=== PATIENT | female | born 1980 | race Caucasian/White ===

== ENCOUNTER → 2020-01-26 14:15 | Outpatient (CLI) | payer OTHER, SELFPAY ==
--- NOTE | ~2020-01-26 | US_ITS ---
US breast LT limited 01/26/2020 14:30 Indication: Follow-up left breast mass Procedure: High-resolution ultrasound of the left breast Comparison: 05/12/2019 Findings: At 5:00, 4 cm from the nipple, there is a complicated cyst measuring 8 mm maximum dimension . No suspicious masses are identified to suggest malignancy. Impression: 1: No sonographic evidence for malignancy in the left breast. Benign complicated cyst at 5:00, 4 cm f rom the nipple. Routine yearly screening mammogram and regular clinical breast examination are recommended. BI-RADS CATEGORY 2 - BENIGN FINDINGS Reviewed, dictated and finalized at location A. Impression: 1: No sonographic evidence for malignancy in the left breast. Benign complicate d cyst at 5:00, 4 cm from the nipple. Routine yearly screening mammogram and regular clinical breast examination are recommended. BI-RADS CATEGORY 2 - BENIGN FINDINGS
== END ==
PROVIDERS: Visit Provider Obstetrics & Gynecology
DX: R92.8 Other abnormal and inconclusive findings on diagnostic imaging of breast (principal)
CPT/HCPCS: 76642

== ENCOUNTER → 2020-12-02 14:32 | Outpatient (CLI) | payer BC, SELFPAY ==
--- NOTE | ~2020-12-02 | MM_ITS ---
EXAMINATION: MM screening [facility] BI w almita HISTORY: Screening mammogram TECHNIQUE: Craniocaudal and mediolateral oblique 3-D tomosynthesis images were obtained and synthetic 2-D images were generated. CAD analysis was submitted and interpreted. COMPARISON: 01/2020 limited left breast ultrasound 05/12/2019 diagnostic left mammogram and left complete ultrasound 04/2019 bilateral digital screening mammogram BREAST PARENCHYMAL COMPOSITION: The breasts are extremely dense, which lowers the sensitivity of mamm ography. FINDINGS: Scattered bilateral benign calcifications. Circumscribed 2.9 x 5 mm opacity in the outer mid right breast most consistent with benign lymph node . There is no evidence of suspicious mass, calcification, or architectural distortion to suggest malign tahmina in either breast. There has been no suspicious interval change. IMPRESSION: 1. No mammographic evidence of malignancy. 2. Recommend routine screening mammography in one year. BI-RADS Category 2: Benign finding(s). Reviewed, dictated and finalized at location A.
== END ==
PROVIDERS: PCP Internal Medicine; Visit Provider Obstetrics & Gynecology
DX: Z12.31 Encounter for screening mammogram for malignant neoplasm of breast (principal)
CPT/HCPCS: 77063; 77067

== ENCOUNTER → 2021-12-28 12:21 | Outpatient (CLI) | payer BC, SELFPAY ==
--- NOTE | ~2021-12-28 | MM_ITS ---
EXAMINATION: MM screening [facility] BI w almita HISTORY: Screening TECHNIQUE: Craniocaudal and mediolateral oblique 3-D tomosynthesis images were obtained and synthetic 2-D images were generated. CAD analysis was submitted and interpreted. COMPARISON: Comparison to multiple prior studies sequentially, with oldest reviewed study dated 09/2018. BREAST PARENCHYMAL COMPOSITION: The breasts are extremely dense, which lowers the sensitivity of mamm ography FINDINGS: There is no evidence of suspicious mass, calcification, or architectural distortion to sugg est malignancy in either breast. There has been no suspicious interval change. IMPRESSION: 1. No mammographic evidence of malignancy. 2. Recommend routine screening mammography in one year. BI-RADS Category 1: Negative Reviewed, dictated and finalized at location A.
== END ==
PROVIDERS: PCP Internal Medicine; Visit Provider Obstetrics & Gynecology
DX: Z12.31 Encounter for screening mammogram for malignant neoplasm of breast (principal)
CPT/HCPCS: 77063; 77067

== ENCOUNTER 2022-01-29 14:41 | Emergency (ER) | payer BC, SELFPAY ==
[2022-01-29 14:42] VITALS: BP 154/64; PULSE 108; RESP 14; TEMP 37.3; O2SAT 100
[2022-01-29 16:22] VITALS: BP 134/92; PULSE 89; RESP 18; TEMP 36.4; O2SAT 100
--- NOTE | 2022-01-29 17:23 | ED.SKABFB ---
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 Related Data Allergies Allergy/AdvReac Type Severity Reaction Status Date / Time No Known Allergies Allergy Unverified 01/29/22 16:22 Review of Systems Review of Systems: CONST: No fever. HEENT: No sore throat C/V: No chest pain RESP: No cough GI: NO nausea/vomtiing : No dysuria. M/S: No joint pain. SKIN: Painful lump on skin NEURO: [No headache or focal numbness or weakness] PSYCH: [No depression] PMFSH Past Medical History Medical History Hypothyroidism Family History Family History Father Family history of hypercholesterolemia Hypertension Mother Hypertension Social History Social History Smoking status: Never smoker Second hand tobacco smoke exposure: No Alcohol intake: never Exam Narrative: EXAMINATION OF ORGAN SYSTEMS/BODY AREAS: Constitutional: Vital signs per nursing GENERAL:[No acute distress, non-toxic appearing.] HEAD: Normal with no signs of head trauma. EYES: EOMI, conjunctiva normal ENT: Hearing grossly intact LUNGS: Nonlabored breathing. HEART: [Regular rate and rhythm] ABD: [Soft], nondistended EXT: Normal range of motion SKIN: Painful raised erythematous fluctuant mass left side 3cm by 3cm NEURO: [Alert and oriented x 3. No gross focal sensory or strength deficits.] PSYCH: Normal affect Course Vital Signs Vital signs: Vital Signs Temperature 99.2 F 01/29/22 14:42 Pulse Rate 108 H 01/29/22 14:42 Respiratory Rate 14 01/29/22 14:42 Blood Pressure 154/64 H 01/29/22 14:42 Pulse Oximetry 100 01/29/22 14:42 Oxygen Delivery Room Air 01/29/22 14:42 Temperature 97.5 F L 01/29/22 16:22 Pulse Rate 89 01/29/22 16:22 Respiratory Rate 18 01/29/22 16:22 Blood Pressure 134/92 H 01/29/22 16:22 Pulse Oximetry 100 01/29/22 16:22 Oxygen Delivery Room Air 01/29/22 14:42 MDM - Skin/Abscess/Foreign Bdy MDM Narrative Medical decision making narrative: MEDICAL DECISION MAKING AND COURSE IN THE ED WITH INTERPRETATION/REVIEW OF DIAGNOSTIC STUDIES: Electronic medical record was reviewed. Patient presented to the ED with complaint of painful skin rash. Vitals [were within acceptable limits]. Physical exam revealed area of tenderness and induration consistent with abscess, [with] fluctuance that may benefit from drainage. US performed by myself, shows fluid collection. Incision and drainage was performed here, verbal consent obtained and risks/benefits explained. Skin was cleaned and [1% lidocaine] solution was injected to make a wheal for local anesthesia. A scalpel was used to make a [3 mm] incision and [2 cc] of purulent discharge was expressed from the incision. There was [minimal] bleeding, patient tolerated procedure [well]. Wound was left open to allow for further drainage. [Patient was given Bactrim here and a course to continue at home.] The patient is discharged home in stable condition. I have asked the patient to return to the emergency department for worsening pain, worsening and increasing size of skin infection, fevers/chills. The patient is instructed to follow up with [PCP] in [2] days. Patient verbalized understanding. Discharge Plan Discharge Clinical Impression: Abscess Patient Disposition: Home, Self-Care Condition: Stable Instructions: Antibiotic Form, Abscess (ED) Additional Instructions: Please come back if your symptoms worsen or doesn't improve with several days of
[2022-01-29] MEDS: SULFAMETHOXAZOLE/TRIMETHOPRIM 800/160 MG DS TABLET 1 TAB PO (17:33)
== END 2022-01-29 17:40 | disposition home or self-care (01) ==
PROVIDERS: Emergency Provider Emergency Medicine; PCP Internal Medicine
DX: L02.212 Cutaneous abscess of back [any part, except buttock and flank] (principal); E03.9 Hypothyroidism, unspecified
CPT/HCPCS: 10060; 99283; A9270

== ENCOUNTER 2022-06-29 13:44 | Emergency (ER) | payer BC, SELFPAY ==
[2022-06-29 13:50] VITALS: BP 132/79; PULSE 104; RESP 16; TEMP 37.1; O2SAT 100
--- NOTE | 2022-06-29 14:04 | ED.EAR ---
HPI - Ear Problem General Chief complaint: Ear Stated complaint: HEARING LOSS R EAR/SINUS Time Seen by Provider: 06/29/22 14:05 Source: patient Mode of arrival: ambulatory Limitations: no limitations History of Present Illness HPI Narrative: 42-year-old female result with complaint of runny nose, nasal congestion, postnasal drainage, intermittent sore throat, dry cough for 3 days. Today woke with decreased hearing to her right ear. Is not taking any [id number] medications to treat her symptoms. Afebrile. No chest pain or shortness of breath. All systems reviewed and negative except as noted above. Related Data Allergies Allergy/AdvReac Type Severity Reaction Status Date / Time No Known Allergies Allergy Unverified 05/30/22 11:24 Review of Systems Review of Systems: CONSTITUTIONAL: Denies fever, chills, or sweats. EYES: Denies visual changes, redness, or discharge. ENT: Reports rhinorrhea, congestion, sore throat, hearing decreased right ear CARDIOVASCULAR: Denies chest pain, palpitations, or edema. RESPIRATORY: Denies cough or dyspnea. GASTROINTESTINAL: Denies abdominal pain, nausea, vomiting, or diarrhea. GENITOURINARY: Denies dysuria or hematuria. SKIN: Denies rash or itching. MUSCULOSKELETAL: Denies back pain, joint pain, or myalgia. NEUROLOGIC: Denies headache, numbness, or weakness. PSYCHIATRIC: Denies anxiety or depression. All other systems reviewed are negative, except as documented in HPI. PMFSH Past Medical History Medical History Hypothyroidism Family History Family History Father Family history of hypercholesterolemia Hypertension Mother Hypertension Social History Social History Smoking status: Never smoker Second hand tobacco smoke exposure: No Alcohol intake: never Comments At time of signature, agree with nursing past medical, surgical, social and family history. There is no relevant family history pertinent to the presenting complaint. Exam Narrative: GENERAL: This is a well-nourished, well-developed patient, in no apparent distress. HEAD: normocephalic, atraumatic. EYES: PERRL. Sclera clear/white. Vision is grossly intact. EARS: External ears normal, auditory canals clear and without drainage, TMs normal without perforation. Hearing grossly intact. NOSE: External nose normal with clear nasal drainage, nares without redness, THROAT: Mucous membranes moist, clear postnasal drainage. NECK: Neck supple, non-tender without lymphadenopathy, masses or thyromegaly. CARDIOVASCULAR: Regular rate and rhythm without murmurs, gallops, or rubs. RESPIRATORY: Clear to auscultation. Breath sounds equal bilaterally. No wheezes, rales, or rhonchi. SKIN: warm, Dry, intact with no suspicious lesions or rash, good texture and turgor. NEURO: awake, alert, and oriented to person, place and time. There were no obvious focal neurologic abnormalities. EXTREMITIES: No joint tenderness, effusion, or edema noted. Course Course Level of Care: Express Care Visit Vital Signs Vital signs: Vital Signs Temperature 37.1 C 06/29/22 13:50 Pulse Rate 104 H 06/29/22 13:50 Respiratory Rate 16 06/29/22 13:50 Blood Pressure 132/79 06/29/22 13:50 Pulse Oximetry 100 06/29/22 13:50 Temperature 37.1 C 06/29/22 13:50 Pulse Rate 104 H 06/29/22 13:50 Respiratory Rate 16 06/29/22 13:50 Blood Pressure 132/79 06/29/22 13:50 Pulse Oximetry 100 06/29/22 13:50 Reviewed Medical Decision Making MDM Narrative Medical decision making narrative: Patient is aware of diagnosis, understands and agrees to treatment plan. Anticipatory guidance given. Patient agrees to follow-up as directed and is aware of reasons to seek care at the emergency department. Portions of this record may have been created with voice recognition
== END 2022-06-29 14:14 | disposition home or self-care (01) ==
PROVIDERS: Emergency Provider Nurse Practitioner Family; PCP Physician Assistant
DX: J01.90 Acute sinusitis, unspecified (principal); H65.01 Acute serous otitis media, right ear; E03.9 Hypothyroidism, unspecified
CPT/HCPCS: 99213; G0463

== ENCOUNTER → 2023-01-30 13:37 | Outpatient (CLI) | payer BC, SELFPAY ==
--- NOTE | ~2023-01-30 | MM_ITS ---
EXAMINATION: MM screening [facility] BI w almita HISTORY: Screening mammogram TECHNIQUE: Craniocaudal and mediolateral oblique 3-D tomosynthesis images were obtained and synthetic 2-D images were generated. CAD analysis was submitted and interpreted. COMPARISON: 12/28/2021, 12/02/2020, 05/12/2019, 04/27/2019 BREAST PARENCHYMAL COMPOSITION: The breasts are heterogeneously dense, which may obscure small masses . FINDINGS: No suspicious mass, calcification, or architectural distortion are identified in either riley ast to suggest malignancy. There has been no suspicious interval change. IMPRESSION: 1. No mammographic evidence of malignancy. 2. Recommend routine screening mammography in one year. BI-RADS Category 1: Negative Reviewed, dictated and finalized at location A.
== END ==
PROVIDERS: PCP Obstetrics & Gynecology; Visit Provider Obstetrics & Gynecology
DX: Z12.31 Encounter for screening mammogram for malignant neoplasm of breast (principal)
CPT/HCPCS: 77063; 77067

== ENCOUNTER 2025-04-08 17:01 | Emergency (ER) | payer OTHER, SELFPAY ==
[2025-04-08 17:40] VITALS: BP 125/79; PULSE 103; RESP 15; TEMP 37; O2SAT 100
--- OUTSIDE RECORDS SUMMARY | 2025-04-08 18:01 | XMS_ITS | Encounter Summary ---
Author Organization [facility] Address [address] [place] [address] Care Team Providers Care Drug Abuse Worker Name Role Phone Belgica Ji Primary Care Provider [phone] Encounter Details Date Type Department Care Team (Late st Contact Info) Description 10/14/2024 ConnXushart Message Enc [facility] Family & Internal Medicine [id number] [place] [address] Belgica Ji APNP [facility] [place] [address] Exam paperwork Social History Tobacco Use Types Packs/Day Years Used Date Smoking Tobacco: Never Smokeless Tobacco: Never Alcohol Use Standard Drinks/Week Comments Never 0 (1 standard drink = 0.6 oz pur e alcohol) PHQ-2 Answer Date Recorded Patient Health Questionnaire-2 Score 0 10/16/2024 Comments No Sex and Gender Information Value Date Recorded Sex Assigned at Not on file 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 Question Answer Date of Assessment Author Status Little interest or pleasure in doing things Not at all 10/16/2024 7:35 AM Kristin Pederson MA Active Feeling down, depressed, or hopeless Not at all 10/16/2024 7:35 AM DENIST Brianda Tompkins MA Active Patient Health Questionnaire-2 Score 0 10/16/2024 7:35 AM Danelle Pederson MA Active documented as of this encounter Plan of Treatment Upcoming Encounters Date Type Department Care Team (Late st Contact Info) Description 04/09/2025 3:20 PM CDT Office Visit [facility] Family & Internal Medicine - [place] [address] [place] [address] Cindy Espinoza, DO 3 [facility] [address] [place] [address] documented as of this encounter Visit Diagnoses Not on filedocumented in this encounter Care Teams Drug Abuse Worker Relationship Specialty Start Date End Date Belgica Ji APNP [address] [place] [address] PCP - General NURSE PRACTITIONER 07/03/23 documented as of this encounter
--- OUTSIDE RECORDS SUMMARY | 2025-04-08 18:01 | XMS_ITS | Clinical Summary ---
Author Organization [facility] Address [address] [place] [address] Care Team Providers Care C4 Planner Name Role Phone Enrique Loza MD Primary Care Provider Source Comments [facility],non-owned Affiliates and Associated Physician Practices is amultiple site organization consisting of ambulatory clinics and hospital sitesin [place], [place], [place] and [place]. This disclosure is being madepursuant to the Care Everywhere program and may not contain all information available regarding this patient. Last updated 18.[facility] Immunizations Immunization Administration Dates Next Due INFLUENZA VACCINE, QUADR. 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 Gender Identity Not on file Sexual Orientation Not on file Plan of Treatment Health Maintenance Due Date Last Done Comments COLOGUARD (AGES 45-75) - COL ON CA SCREENING 1978 COLON MONITORING 1978 COLONOSCOPY - COLON CA SCREENING 1978 CT COLONOGRAPHY - COLON CA SCREENING 1978 Colorectal Cancer Screening 1978 FIT - COLON CA SCREENING 1978 FLEX SIG - COLON CA SCREENING 1978 LIPID TESTING 1978 MAMMOGRAM 1978 HIV SCREENING 1993 HEPATITIS C SCREENING 03/25/1996 DTAP/TDAP/TD VACCINES (1 - Tdap) 1997 HEPATITIS B VACCINE (1 of 3 - 19+ 3-dose series) 1997 DEPRESSION SCREENING 06/24/2024 COVID-19 VACCINE (1 - 2023-2 5 season) 2025 INFLUENZA VACCINE (#1) 2025 0, 04/25/2019 ZOSTER VACCINE (1 of 2) 2028 HIB VACCINE Aged Out No longer eligi ble based on patient's age to complete this topic HPV VACCINE Aged Out No longer eligi ble based on patient's age to complete this topic MENINGOCOCCAL (Group B) VACCINE SHARED DECISION-MAKING Aged Out No longer eligible based on patient's age to complete this topic MENINGOCOCCAL GROUPS A/C/Y/W VACCINE Aged Out No longer eligible b ased on patient's age to complete this topic PNEUMOCOCCAL VACCINE Aged Out No long er eligible based on patient's age to complete this topic Insurance [facility] Care Teams C4 Planner Relationship Specialty Start Date End Date Enrique Loza MD [address] [place] [address] PCP - General Family Medicine 05/03/17
--- OUTSIDE RECORDS SUMMARY | 2025-04-08 18:01 | XMS_ITS | Encounter Summary ---
Author Organization [facility] Address [address] [place] [address] Care Team Providers Care Baker Pastry Name Role Phone Belgica Ji Primary Care Provider [phone] Encounter Details Date Type Department Care Team (Late Contact Info) Description 03/04/2024 MyChart Message Enc [facility] Family & Internal Medicine [address] [place] [address] Belgica Ji APNP [address] [place], [place] [id number] Coverage Social History Tobacco Use Types Packs/Day Years Used Date Smoking Tobacco: Never Smokeless Tobacco: Never Alcohol Use Standard Drinks/Week Comments Never 0 (1 standard drink = 0.6 oz pur e alcohol) PHQ-2 Answer Date Recorded Patient Health Questionnaire-2 Score 0 10/16/2023 Comments No Sex and Gender Information Value Date Recorded Sex Assigned at Not on file 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 Gender Identity Not on file Sexual Orientation Not on file documented as of this encounter Plan of Treatment Upcoming Encounters Date Type Department Care Team (Late st Contact Info) Description 04/09/2025 3:20 PM CDT Office Visit [facility] Family & Internal [address] [address] Cindy Espinoza, DO [address] [address] documented as of this encounter Visit Diagnoses Not on filedocumented in this encounter Care Teams Baker Pastry Relationship Specialty Start Date End Date Belgica Ji APNP [address] [place] [address] PCP - General NURSE PRACTITIONER 07/03/23 documented as of this encounter
--- OUTSIDE RECORDS SUMMARY | 2025-04-08 18:01 | XMS_ITS | Encounter Summary ---
Author Organization [facility] Address [address] [place] [address] Care Team Providers Care Fish Hatchery Supervisor Name Role Phone Belgica Ji Primary Care Provider [phone] Encounter Details Date Type Department Care Team (Late st Contact Info) Description 04/08/2025 Wep[place]art Message Enc [facility] Family & Internal Medicine [facility] [address] [place] [phone] Belgica Ji APNP [address] [place], [place] [phone] Painful cyst? 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 LL-04/08/25 * Salena Wan MA - 04/08/2025 4:11 PM CDT Pt tentatively scheduled with Dr. Espinoza tomorrow. Janine Goldsmith will triage to ensure waiting is safe. documented in this encounter Plan of Treatment Upcoming Encounters Date Type Department Care Team (Late st Contact Info) Description 04/09/2025 3:20 PM CDT Office Visit [facility] Family & Internal Medicine - [id number] [place] [address] Cindy Espinoza, DO 3 [facility]. [address] [address] documented as of this encounter Visit Diagnoses Not on filedocumented in this encounter Care Teams Fish Hatchery Supervisor Relationship Specialty Start Date End Date Belgica Ji APNP [address] [place] [address] PCP - General NURSE PRACTITIONER 07/03/23 documented as of this encounter
--- OUTSIDE RECORDS SUMMARY | 2025-04-08 18:01 | XMS_ITS | Clinical Summary ---
Author Organization [facility] Address [address] [place] [id number] Care Team Providers Care Nursing Support Worker Name Role Phone Belgica Ji Primary Care Provider [phone] Allergies No known active allergies Medications lovastatin (MEVACOR) 20 MG tabletIndications:M ixed hyperlipidemia Take 1 tablet (20 mg total) by mouth daily with supper. 90 tablet 1 5 Active levothyroxine (SYNTHROID) 100 MCG tabletIndications:D isease of thyroid gland TAKE 1 TABLET(100 MCG) BY MOUTH EVERY MORNING 90 tablet 3 5 Active Active Problems Problem Noted Date Diagnosed Date Mixed hyperlipidemia 10/16/2023 Disease of thyroid gland Encounters Date Type Department Care Team Description 04/08/2025 MyChart Message Enc [facility] Medicine [address] [phone] Belgica Ji APNP Painful cyst? 01/22/2025 Results Follow-Up [facility] [address] [phone] Belgica Ji APNP THYROXINE, FREE (FT4), THYROID STIM HORMONE TSH, COMPREHENSIVE METABOLIC PANEL, Additional followed-up results: 2 01/21/2025 7:40 AM CDT Laboratory Only [facility] [address] [phone] Belgica Ji APNP 01/21/2025 Travel 01/13/2025 MyChart Message Enc [facility] Medicine [address] [phone] Belgica Ji APNP Lab appointment 01/07/2025 Telephone [facility] [address] [phone] Belg[place] Ji APNP Medication Request; Medication Problem from Last 3 Months Immunizations Immunization Administration Dates Next Due Dtap (Generic) 03/08/2017 Influenza Adult (Generic) 05/02/2023,04/30/2020, 04/25/2019 Family History Medical History Relation Comments Hyperlipidemia Father Hypertension Father Hyperlipidemia Mother Hypertension Mother Relation Status Comments Father Alive Mother Alive Social History Tobacco Use Types Packs/Day Years Used Date Smoking Tobacco: Never Smokeless Tobacco: Never Tobacco Cessation:Counseling Given: No Alcohol Use Standard Drinks/Week Comments Never 0 (1 standard drink = 0.6 oz pur e alcohol) PHQ-2 Answer Date Recorded Patient Health Questionnaire-2 Score 0 10/16/2024 Comments No Sex and Gender Information Value Date Recorded Sex Assigned at Not on file 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 Gender Identity Not on file Sexual Orientation Not on file Last Filed Vital Signs Vital Sign Reading Time Taken Comments Blood Pressure 106/66 10/16/2024 7:35 AM CDT Pulse 90 10/16/2024 7:35 AM CDT Temperature 36.8 C (98.3 F) 10/16/2024 7:35 AM CDT Respiratory Rate 16 05/14/2024 11:07 AM 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 INSPECTOR Oxygen Saturation 99% 10/16/2024 7:35 AM CDT Inhaled Oxygen Concentration - - Weight 59.2 kg (130 lb 8 oz) 10/16/2024 7:35 AM CDT Height 157.5 cm (5' 2) 10/16/2024 7:35 AM CDT Body Mass Index 23.87 10/16/2024 7:35 AM CDT Plan of Treatment Upcoming Encounters Date Type Department Care Team (Late st Contact Info) Description 04/09/2025 3:20 PM CDT Office Visit [facility] [address] [phone] Cindy Espinoza, DO [address] [address] Health Maintenance Due Date Last Done Comments Hepatitis C 1996 Hepatitis B Vaccines (1 of 3 - 19+ 3-dose series) 1997 Cervical Cancer Screening Pap Smear (Age 30 to 64) Every 3 Years 11/09/2017 11/09/2014 COVID-19 Vaccine ( season) 2025 02/20/2022, 07/21/2020, 06/30/2020 Influenza Adult (#1) 2025 05/02/2023, 04/30/2020, 04/25/2019 Annual Physical 10/16/2025 10/16/2024 Colorectal Cancer Screening FIT-DNA (3 Years) 04/15/2026 04/15/2023 Mammogram Screening 12/18/2026 12/18/2024, 12/09/2024, 12/09/2023, Additional history exists DTaP, Tdap and Td Vaccines (2 - Tdap) 03/08/2027 03/08/2017 Cervical Cancer Screening Pap with HPV Testing (Age 30 to 64) Every 5 Years 03/18/2028 03/18/2023 Cervical Cancer Screening with HPV 03/18/2028 PHQ-2 (Physician [place]) Completed 10/16/2024 Hepatitis A Vaccines Aged Out No long er eligible based on patient's age to complete this topic Meningococcal B Vaccine Aged Out No l onger eligible based on patient's age to complete this topic Meningococcal Vaccine Aged Out No sachin андрей eligible based on patient's age to complete this topic Pneumococcal Vaccine: Pediatrics (0 to 5 Years) and At-Risk Patients (6 to 49 Years) Aged Out No longer eligible based on patient's age to complete this topic RSV Immunizations Under 20 Months Aged Out No longer eligible based on patient's age to complete this topic Procedures Procedure Name Priority Date/Time Associated Diagnosis Comments COLLECTION VENOUS BLOOD VENIPUNCTURE Routine 01/21/2025 7:42 AM CDT General medical exam BMI 23.0-23.9, adult Disease of thyroid gland Neurofibromatosis, type 1 Mixed hyperlipidemia CBC W/DIFF AUTOMATED Routine 01/21/2025 7:42 AM CDT General medical exam BMI 23.0-23.9, adult Neurofibromatosis, type 1 (CMS/HCC HHS/HCC) LIPID PANEL Routine 01/21/2025 7:42 AM CDT General medical exam BMI 23.0-23.9, adult Mixed hyperlipidemia Neurofibromatosis, type 1 (CMS/HCC HHS/HCC) COMPREHENSIVE METABOLIC PANEL Routine 01/21/2025 7:42 AM CDT General medical exam BMI 23.0-23.9, adult Neurofibromatosis, type 1 (CMS/HCC HHS/HCC) THYROID STIM HORMONE TSH Routine 01/21/2025 7:42 AM CDT General medical exam BMI 23.0-23.9, adult Disease of thyroid gland Neurofibromatosis, type 1 (CMS/HCC HHS/HCC) THYROXINE, FREE (FT4) Routine 01/21/2025 7:42 AM CDT General medical exam BMI 23.0-23.9, adult Disease of thyroid gland Neurofibromatosis, type 1 (CMS/HCC HHS/HCC) MG DIAG W SHA LT DIGI Routine 12/18/2024 8:31 AM CDT Abnormal mammogram COLOGUARD (SCAN ORDER) Routine 04/15/2023 OUTSIDE CYTOPATH CERV/VAG INTERPRET (PAP) 03/18/2023 from Last 3 Months or Most Recently Relevant to Health Maintenance Results * COMPREHENSIVE METABOLIC PANEL (01/21/2025 7:42 AM CDT) SODIUM S/P/B 139 136 - 145 MMOL/L 01/21/2025 5:22 PM CDT [facility] POTASSIUM S/P/B 3.9 3.5 - 5.1 MMOL/L 01/21/2025 5:22 PM CDT [facility] CHLORIDE S/P/B 104 98 - 107 MMOL/L 01/21[facility]2025 5:[facility] CO2 24.7 21 - 32 MMOL/L 01/21/2025 5:22 PM T [facility] GLUCOSE 90 70 - 99 MG/DL 01/21/2025 5:22 PM [facility] BUN 15 7 - 18 MG/DL 01/21/2025 5:22 PM T [facility] CREATININE S/P/B 0.56 0.55 - 1.02 MG/DL 01/21/2025 5:22 [facility] CALCIUM S/P/B 9.0 8.4 - 10.5 MG/DL 01/21/2025 5:22 PM [facility] BILIRUBIN TOTAL S/P/B 0.8 0.2 - 1.0 MG/DL 01/21/2025 5:22 PM [facility] ALKALINE PHOSPHATASE S/P/B 73 39 - 100 U/L 01/21/2025 5:22 PM [facility] AST 15 15 - 37 U/L 01/21/2025 5:22 PM T [facility] ALT 21 14 - 59 U/L 01/21/2025 5:22 PM [facility] TOTAL PROTEIN S/P/B 6.7 6.4 - 8.2 G/DL 01/21/2025 5:22 PM T [facility] ALBUMIN S/P/B 3.8 3.4 - 5.0 G/DL 01/21/2025 5:22 PM CDT [facility] ANION GAP 10.3 5 - 15 MMOL/L 01/21/2025 5:22 PM CD[facility] Comment:REFERENCE RANGE NOT ESTABLISHED OSMOLALITY (CALC) 288 MOSM/KG 025 5:22 PM T [facility] Comment:REFERENCE RANGE NOT ESTABLISHED GFR ESTIMATE >90 >90 ML/MIN/1. 73 M2 01/21/2025 5:22 PM CDT [facility] GFR NOTES GFR REFERENCE S: 01/21/2025 5:22 PM CDT [facility] Comment: THE ESTIMATED GFR IS CALCULATED USING THE 2020 CKD-EPI EQUATION. THE FOLLOWING CATEGORIES FOR GRADING RENAL FUNCTION ARE RECOMMENDED BY THE INTERNATIONAL SOCIETY OF NEPHROLOGY (KDIGO 2012 CLINICAL PRACTICE GUIDELINE). G1,NORMAL OR HIGH: >89 ml/min/1.73 m2 G2,MILDLY DECREASED: 60-89 ml/min/1.73 m2 G3A,MILDLY TO MODERATELY DECREASED: 45-59 ml/min/1.73 m2 G3B,MODERATELY TO SEVERELY DECREASED: 30-44 ml/min/1.73 m2 G4,SEVERELY DECREASED: 15-29 ml/min/1.73 m2 G5,KIDNEY FAILURE: <15 ml/min/1.73 m2 01/21/2025 7:42 AM CDT [facility] Final Resul t [facility] [address] [place] [address], * (ABNORMAL) LIPID PANEL (01/21/2025 7:42 AM CDT) CHOLESTEROL 192 <200 MG/DL 01/21/2025 5:22 PM CDT [facility] TRIGLYCERIDES 48 <150 MG/DL 01/21/2025 5:22 PM CDT [facility] HDL 46 >40 MG/DL 01/21/2025 5:22 PM CDT [facility] LDL-C 136(H) <100 MG/DL 01/21/2025 5:22 PM CDT [facility] VLDL CALCULATION 10 5 - 28 MG/DL 01/21/2025 5:22 PM CDT [facility] CHOL/HDL RATIO 4.2(H) 0.0 - 4.0 01/21/2025 5:22 PM CDT [facility] LDL/HDL 3.0(H) 0.41 - 2.13 01/21/2025 5:22 PM CDT [facility] NON HDL CHOLESTEROL 146(H) <140 MG/DL 01/21/2025 5:22 PM CDT -[facility] 01/21/2025 7:42 AM CDT [facility] Final Resul t -[facility] [address] [place] [address], * (ABNORMAL) CBC W/DIFF AUTOMATED (01/21/2025 7:42 AM CDT) WBC 4.19 4.00 - 10.80 x10'3/uL 01/21/2025 3:30 PM CDT -[facility] RBC 4.51 4.10 - 5.40 x10'6/uL 01/21/2025 3:30 PM CDT [facility] HGB 13.6 12.0 - 16.0 G/DL 01/21/2025 3:30 PM CDT [facility] HCT 40.0 36.0 - 47.0 % 01/21/2025 3:30 PM CDT -[facility] MCV 88.7 78.0 - 100.0 FL 01/21/2025 3:30 PM CDT [facility] MCH 30.2 27.0 - 31.0 PG 01/21/2025 3:30 PM CDT [facility] MCHC 34.0 33.0 - 36.0 G/DL 01/21/2025 3:30 PM CDT [facility] RDW 11.8 11.5 - 14.5 % 01/21/2025 3:30 PM CDT [facility] PLT 303 150 - 350 x10'3/uL 01/21/2025 3:30 PM CDT -[facility] MPV 11.4(H) 7.4 - 10.4 FL 01/21/2025 3:30 PM CDT [facility] DIFFERENTIAL TYPE AUTOMATED DIFFERENTIAL 01/21/2025 3:30 PM CDT [facility] NEUTROPHILS % 55.9 % 01/21/2025 3:30 PM CDT [facility] LYMPHOCYTES % 27.9 % 01/21/2025 3:30 PM CDT [facility] MONOCYTES % 12.9 % 01/21/2025 3:30 PM CDT [facility] EOSINOPHILS % 2.1 % 01/21/2025 3:30 PM CDT [facility] BASOPHILS % 1.0 % 01/21/2025 3:30 PM CDT [facility] IMMATURE GRANS % 0.2 % 01/21/2025 3:30 PM CDT [facility] ABS. NEUTROPHILS 2.34 1.60 - 8.30 x10'3/uL 01/21/2025 3:30 PM CDT [facility] ABS. LYMPHOCYTES 1.17 0.80 - 4.70 x10'3/uL 01/21/2025 3:30 PM CDT [facility] ABS. MONOCYTES 0.54 0.00 - 1.50 x10'3/uL 01/21/2025 3:30 PM CDT [facility] ABS. EOSINOPHILS 0.09 0.00 - 0.40 x10'3/uL 01/21/2025 3:30 PM CDT [facility] ABS. BASOPHILS 0.04 0.00 - 0.20 x10'3/uL 01/21/2025 3:30 PM CDT [facility] ABS. IMMATURE GRANULOCYTES 0.01 0.00 - 0.03 x10'3/uL 01/21/2025 3:30 PM CDT [facility] 01/21/2025 7:42 AM CDT [facility] Final Resul t Performing Organization Address [facility] Co de Phone Number [address] [address], * THYROXINE, FREE (FT4) (01/21/2025 7:42 AM CDT) FREE T4 1.32 0.76 - 1.46 NG/DL 01/21/2025 5:22 PM CDT [facility] 01/21/2025 7:42 AM CDT [facility] Final Resul t Performing Organization Address [facility] Co de Phone Number [address] [address], [place] [phone] * THYROID STIM HORMONE TSH (01/21/2025 7:42 AM CDT) TSH 1.036 0.358 - 3.740 uIU/ML 01/21/2025 5:22 PM CDT [facility] 01/21/2025 7:42 AM CDT [place] Final Resul t Performing Organization Address [facility] Co de Phone Number [address] [address], [place] [phone] * MG DIAG W SHA LT DIGI (12/18/2024 8:31 AM CDT) Anatomical Region Laterality Modality Breast Left Mammography 12/18/2024 9:24 AM CDT Impressions 12/18/2024 9:35 AM CDT IMPRESSION: Additional diagnostic imaging fails to disclose any suspicious abnormality. See text. Routine follow-up in one year would now seem adequate. Recommendation: 1: Routine screening mammogram Bilateral in 1 Year Overall assessment: ACR BI-RADS Category 2 - Benign. Return for Routine Follow-Up: Yes Ordered By: JUANY PITTMAN Interpreted By: Mark Albert MD, 12/18/2024 9:24 AM Narrative 12/18/2024 9:35 AM CDT [facility] [address] [place] [address] Examination: Digital left diagnostic mammogram with CAD. [id number] Clinical history: Follow-up, abnormal screening mammogram. History of neurofibromatosis. Comparison: 12/09/2024; left breast ultrasound, 05/12/2019. Technique: True lateral and spot compression CC and MLO left digital mammograms. The exam was interpreted with the use of a computer-aided detection (CAD) system. Additional 3-D Tomosynthesis images were acquired. Tissue density: The breast tissue is heterogeneously dense. Findings: The patient returned for additional diagnostic imaging to further evaluate the asymmetry lying near the nipple axis identified at screening. The finding in question shows no definite correlate on the true lateral view. Under spot compression, there is subtotal effacement with no definite evidence of underlying mass, suspicious microcalcification or architectural distortion. Mixed fatty and moderately dense tissue background persists. Benign-appearing calcification again evident. Due to the density of the local tissue background, it was elected to perform ultrasound. Examination: Left breast ultrasound. Technique:Grayscale and color Doppler images. Findings: Survey of the subareolar/periareolar region for evaluation of the central tissue core was performed encompassing the broad region of interest. In the 9:00 periareolar distribution, there is a sharply circumscribed ovoid hypoechoic structure at the dermal boundary measuring approximately 6 x 4 x 2 mm, stable since 2018, likely a neurofibroma. [place] appearing tissue architecture is otherwise demonstrated. No sonographically discrete finding within the breast proper is identified. No sonographically suspicious abnormality is identified. Based on these findings, routine mammographic follow-up in one year would now seem adequate. These findings were discussed with the patient. Juany Pittman PA-C MAMMO Final Resu lt * COLOGUARD (04/15/2023) COLOGUARD NEGATIVE [facility] ONBASE STOOL 04/15/2023 [facility] Scanned SCANNING Final Resu lt [facility] ONBASE * PAP SMEAR WITH HPV (03/18/2023) 03/18/2023 [facility] Scanned SCANNING Final Resu lt from Last 3 Months or Most Recently Relevant to Health Maintenance Insurance [employer] Care Teams Nursing Support Worker Relationship Specialty Start Date End Date Belgica Ji APNP [address] [place] [id number] PCP - General NURSE PRACTITIONER 07/03/23
--- NOTE | 2025-04-08 18:12 | ED.SKABFB ---
HPI - Skin/Abscess/Foreign Bdy General Chief complaint: Skin/Abscess/Foreign Body <Kenya Cordero PA-C - Last Filed: 04/09/25 17:23> Stated complaint: Abscess on L ribcage <Kenya Cordero PA-C - Last Filed: 04/09/25 17:23> Time Seen by Provider: 04/08/25 18:12 <Kenya Cordero PA-C - Last Filed: 04/09/25 17:23> Focused HPI: This is a 45 year old female that presents to the ER for abscess to the left mid back. Ongoing over the last couple of days. Denies fevers, drainage. GENERAL: Well-appearing, well-nourished, and in no acute distress. HEAD: Normocephalic, atraumatic. CHEST: Clear to auscultation. ?No respiratory distress. HEART: Regular rate and rhythm.? NEURO: ?Alert and oriented x3. Patient screened in triage and initial orders placed.? ?Additional care and disposition to be based upon?diagnostic testing and treatment. <Kenya Cordero PA-C - Last Filed: 04/09/25 17:23> History of Present Illness HPI narrative: Agree with the HPI above <Cristobal Vigil MD - Last Filed: 04/08/25 20:08> Related Data Allergies/Adverse reactions: Allergies Allergy/AdvReac Type Severity Reaction Status Date / Time No Known Allergies Allergy Verified 04/08/25 17:02 <Kenya Cordero PA-C - Last Filed: 04/09/25 17:23> Review of Systems Review of Systems: As reviewed above in HPI <Cristobal Vigil MD - Last Filed: 04/08/25 20:08> PMFSH Past Medical History Medical History: Medical History Hypothyroidism <Kenya Cordero PA-C - Last Filed: 04/09/25 17:23> Family History Family History: Family History Father Family history of hypercholesterolemia Hypertension Mother Hypertension <Kenya Crodero PA-C - Last Filed: 04/09/25 17:23> Social History Social History: Social History Smoking status: Never smoker Second hand tobacco smoke exposure: No Alcohol intake: never Substance use: unknown Current Housing: Decline to Answer Concerned About Future Housing: Decline to Answer Difficulty Paying Gas/Electric Bills: Decline to Answer Difficulty Paying for Meds: Decline to Answer Currently Unemployed: Decline to Answer Education: Decline to Answer Difficulty w/ Childcare or Family Care: Decline to Answer <Kenya Cordero PA-C - Last Filed: 04/09/25 17:23> Exam Narrative: GENERAL: [Well-appearing, well-nourished, and in no acute distress.] HEAD: [Normocephalic, atraumatic.] EYES: [PERRLA and EOMI.] ENT: Nares clear, no rhinorrhea or epistaxis. Mucous membranes moist. NECK: Supple. CHEST: No tachypnea, symmetric chest rise, left posterior axillary line around the 5th to 6th intercostal space has a large area of induration and abscess formation approximately 3 cm x 3 cm. Fluctuant with pain on palpation or warmth and erythema. No streaking erythema or lymphadenopathy around it. Center appears to have an area of either scratch or bite likely the source of the infection. HEART: [Regular rate and rhythm]. No murmur heard. [Normal peripheral pulses.] ABDOMEN: [Soft, nondistended], [nontender], [No rigidity or guarding] EXTREMITIES: Normal range of motion. [No edema.] SKIN: Warm, dry, no rash. NEURO: [No focal deficits]. Alert and oriented [x3.] PSYCH: [Normal mood and affect.] <Cristobal Vigil MD - Last Filed: 04/08/25 20:08> Course Vital Signs Vital signs: Vital Signs Temperature 98.6 F 04/08/25 17:40 Pulse Rate 103 H 04/08/25 17:40 Respiratory Rate 15 04/08/25 17:40 Blood Pressure 125/79 04/08/25 17:40 Pulse Oximetry 100 04/08/25 17:40 Oxygen Delivery Room Air 04/08/25 17:40 Temperature 98.6 F 04/08/25 17:40 Pulse Rate 103 H 04/08/25 17:40 Respiratory Rate 15 04/08/25 17:40 Blood Pressure 125/79 04/08/25 17:40 Pulse Oximetry 100 04/08/25 17:40 Oxygen Delivery Room Air 04/08/25 17:40 <Kenya Cordero PA-C - Last Filed: 04/09/25 17:23> Vital Signs Temperature 98.6 F 04/08/25 17:40 Pulse Rate 103 H 04/08/25 17:40 Respiratory Rate 15 04/08/25 17:40 Blood Pressure 125/79 04/08/25 17:40 Pulse Oximetry 100 04/08/25 17:40 Oxygen Delivery Room Air 04/08/25 17:40 Temperature 98.6 F 04/08/25 17:40 Pulse Rate 103 H 04/08/25 17:40 Respiratory Rate 15 04/08/25 17:40 Blood Pressure 125/79 04/08/25 17:40 Pulse Oximetry 100 04/08/25 17:40 Oxygen Delivery Room Air 04/08/25 17:40 <Cristobal Vigil MD - Last Filed: 04/08/25 20:08> Procedures Abscess I/D chest: Date of Incision: 04/08/25 <Cristobal Vigil MD - Last Filed: 04/08/25 20:08> Time of Incision: 20:07 <Cristobal Vigil MD - Last Filed: 04/08/25 20:08> Side (if applicable): left <Cristobal Vigil MD - Last Filed: 04/08/25 20:08> Sedation/analgesia: none <Cristobal Vigil MD - Last Filed: 04/08/25 20:08> Local Anesthetic: lidocaine 1% and with epi <Cristobal Vigil MD - Last Filed: 04/08/25 20:08> Amount of anesthesia used (mL): 5 <Cristobal Vigil MD - Last Filed: 04/08/25 20:08> Technique: incised with #11 blade and probed loculations <Cristobal Vigil MD - Last Filed: 04/08/25 20:08> Amount of fluid expressed (mL): 5 <Cristobal Vigil MD - Last Filed: 04/08/25 20:08> Irrigation: Yes <Cristobal Vigil MD - Last Filed: 04/08/25 20:08> Packing used?: none <Cristobal Vigil MD - Last Filed: 04/08/25 20:08> I&D Results: Pus and Blood <Cristobal Vigil MD - Last Filed: 04/08/25 20:08> Abcess I&D Additional Comments: Non adherent dressing applied over top. Allowed to close by secondary intention. <Cristobal Vigil MD - Last Filed: 04/08/25 20:08> MDM - Skin/Abscess/Foreign Bdy MDM Narrative Medical decision making narrative: 45-year-old otherwise healthy female presenting with an abscess to her left-sided thoracic backside. Has had an abscess before requiring I&D. Previously been on Bactrim for something similar. Denies any trauma or injury. No outdoor exposure. Does not remember getting bit or scratched by anything. Exam shows left posterior axillary line around the 5th to 6th intercostal space has a large area of induration and abscess formation approximately 3 cm x 3 cm. Fluctuant with pain on palpation or warmth and erythema. No streaking erythema or lymphadenopathy around it. Center appears to have an area of either scratch or bite likely the source of the infection. Patient is overall well-appearing not any acute distress. Afebrile here. Consented to incision and drainage at bedside. Anesthesia with lidocaine with epinephrine used. Given a dose of Bactrim incision completed with scalpel with drainage of purulent material. Placed on oral antibiotics and sent home with PCP follow-up. <Cristobal Vigil MD - Last Filed: 04/08/25 20:08> Discharge Plan Discharge Clinical Impression: Abscess of skin and subcutaneous tissue Qualifiers: Site of cutaneous abscess: trunk Site of cutaneous abscess of trunk: back Qualified Code(s): L02.212 - Cutaneous abscess of back [any part, except buttock and flank] <Kenya Cordero PA-C - Last Filed: 04/09/25 17:23> Patient Disposition: Home <Kenya Cordero PA-C - Last Filed: 04/09/25 17:23> Condition: Stable <CHRISTIE Omalley Last Filed: 04/09/25 17:23> Instructions: Antibiotic Form, Abscess (ED) <CHRISTIE Omalley Last Filed: 04/09/25 17:23> Additional Instructions: We drained an abscess on your left-sided chest wall. Keep the area covered with a gauze bandage and allow for natural drainage of remaining material which will also include some minor bleeding. If you no significant bleeding or hemorrhage applied direct pressure and return if is uncontrollable. Take up to 600 mg of ibuprofen every [id number] hours for pain and swelling control in addition to the Bactrim twice daily for the next 7 days. Return with any issues otherwise follow-up with regular primary care provider. <Kenya Cordero PA-C - Last Filed: 04/09/25 17:23> Patient Language: Frisian <Kenya Cordero PA-C - Last Filed: 04/09/25 17:23> Prescriptions: New sulfamethoxazole-trimethoprim [Bactrim DS] 800-160 mg tablet 1 tablet PO Q12H Qty: 14 0RF No Action levothyroxine 100 mcg tablet 100 mcg PO DAILY Qty: 90 3RF pravastatin 20 mg tablet 20 mg PO DAILY Qty: 90 1RF <Kenya Cordero PA-C - Last Filed: 04/09/25 17:23> Follow-up/Referrals: [facility] [Non-Staff, Unknown] <Kenya Cordero PA-C - Last Filed: 04/09/25 17:23> Time of Disposition: 20:07 <Kenya Cordero PA-C - Last Filed: 04/09/25 17:23> 20:07 <Cristobal Vigil MD - Last Filed: 04/08/25 20:08>
--- OUTSIDE RECORDS SUMMARY | 2025-04-08 19:28 | XMS_ITS | Data Portability ---
Author Organization [facility] RADHALinda Address [address] [place] [address] Care Team Providers Care Compliance Engineer Products Name Role Phone JUANY BLEVINS Laundry Room Attendant Assessment No assessment recorded. Plan of Treatment Reminders Order Date Submit Date Provider Last Modified By Organization Details Last Modified Time Details Appointments None recorded. Lab estradiol, serum 2023 024 [facility], [address] [place] [address], [facility] [address], [place], [address], 4 08:30:28 ferritin, serum or plasma 2023 024 [facility], [address] [place] [address], [facility] [address], [place], [address], 4 08:30:29 FSH (follicle- stimulatin g hormone), serum 2023 024 [facility], [address] [place] [address], [facility] [address], [place], [address], 4 08:30:28 Referral None recorded. Procedures None recorded. Surgeries None recorded. Imaging MAMMO, screening, digital, bilateral 2024 025 [facility], [address] [facility], [place], [address], 5 12:22:26 MAMMO, screening, digital, bilateral 2023 024 [facility], [facility], [place], [address], 15:00:42 Medication Orders None recorded. Patient TargetsNo targets recorded. Patient InstructionsNo instructions recorded. Reason for Referral None Reported. Results Created Date Observation Date Name Description Value Unit Range Abnormal Flag Note LastModifiedBy Organization Detail LastModifiedTime 03/11/2003/12/2024 FSH FSH 11.8 mIU/m L Adult Femal e Range Folli cular phase 3.5 - 12.5 Ovula tion phase 4.7 - 21.5 Lutea l phase 1.7 - 7.7 Postm enopa usal 25.8 - 134.8 Not Available [facility] ([facility]) [address] [facility], [place], [address], 03/12/2024 08:30:27 03/11/2003/12/2024 ESTRA DIOL estradiol 55.4 pg/mL Adult Femal e Range Folli cular phase 12.5 - 166.0 Ovula tion phase 85.8 - 498.0 Lutea l phase 43.8 - 211.0 Postm enopa usal <6.0 - 54.7 Pregn tahmina 1st trime ster 215.0 - >4300 .0 Álvaro ECLIA metho dolog y Not Available [facility] ([facility]) [address] [facility], [place], [address], 03/12/2024 08:30:28 03/11/2003/12/2024 VÍCTOR TIN ferritin 54 NG/mL 15-150 Not Available [facility] ([facility]) [address] [facility], [place], [address], 03/12/2024 08:30:29 12/10/19 24 12/09/2023 MAMMO , scree jason, digit al, bilat eral No observ ation record ed. [email or web address] [address] [facility], [place], [address], 12/19/2023 09:49:59 12/10/19 25 12/09/2024 MAMMO , scree jason, digit al, bilat eral No observ ation record ed. [facility] [address], [place], [address], 12/11/2024 13:59:51 12/19/19 25 12/18/2024 MAMMO , diagn ostic , digit al, unila teral No observ ation record ed. [address], [address], 01/04/2025 11:58:41 12/19/19 25 12/18/2024 US, brecarlton t, unila teral No observ ation record ed. [address], [address], 12/18/2024 16:33:10 Result Notes None recorded. Problems No Known Problems Procedures Surgical History Date Name Laterality Status Provider Name and Address Organization Details Recorded Time 4 Date of Last Mammogram completed GUILLE Bueno - [facility] 12/19/2023 09:48:18 3 Date of Last Pap Smear completed Nelida Ahumada [place] - [facility] 03/25/2024 15:34:50 Dilation and Curettage completed GUILLE Bueno - [facility] 10/29/2023 10:46:24 delivery completed GUILLE Bueno - [facility] 10/29/2023 10:46:31 Imaging Results None recorded. Procedure Notes None recorded. Medical Equipment None Reported. Allergies No known drug allergies Medications Name Sig Start Date Stop Date Status Note LastModified by Organization Details LastModified Time status covid-19/fl u a&b antigen tst TEST DIRECTED TODAY 10/28 completed Not Available Not Available Not Available levothyroxi ne 100 mcg tablet TAKE 1 TABLET BY MOUTH DAILY active Not Available Not Available No t Available tobramycin 0.3 % eye drops INSTILL 2 DROPS IN AFFECTED EYE EVERY 4 HOURS FOR 5 DAYS 03/11 completed Not Available Not Available Not Available pravastatin 20 mg tablet TAKE 1 TABLET BY MOUTH DAILY active Not Available Not Available No t Available Vitals Date Recorded Body height Body mass index (BMI) Body weight Heart rate Systolic And Diastolic Provider Name and Address Organization Details Last Updated DateTime 10/29/2023 157.48 cm 22.6 kg/m2 18638.66 g 83 /min 125/75 mm[Hg] Nelida Ahumada MA [facility] 10/29/2023 10:48:01 Date Recorded Body height Body mass index (BMI) Body weight Heart rate Systolic And Diastolic Provider Name and Address Organization Details Last Updated DateTime 11/25/2024 157.48 cm 24.2 kg/m2 20194.54 g 80 /min 132/88 mm[Hg] Nelida Ahumada MA [facility] 11/25/2024 12:15:03 Date Recorded Body height Body mass index (BMI) Body weight Heart rate Systolic And Diastolic Provider Name and Address Organization Details Last Updated DateTime 03/11/2024 157.48 cm 23 kg/m2 81116.2 g 89 /min 124/80 mm[Hg] Nelida Ahumada MA [facility] 03/11/2024 11:04:41 Social History Question Answer Notes LastModified by Organizat ion Details LastModified Time Tobacco Smoking Status Never Smoker Nelida Ahumada MA null, [facility] 10/29/2023 10:44:42 Are You Blind Or Do You Have Difficulty Seeing? No Information not available 10/29/2023 What Is Your Level Of Caffeine Consumption? Moderate Information not available 10/29/2023 Are You Deaf Or Do You Have Serious Difficulty Hearing? No Information not available 10/29/2023 What Type Of Diet Are You Following? REGULAR Information not available 10/29/2023 What Was The Date Of Your Most Recent Tobacco Screening? 11/25/2024 Information not available 11/25/2024 How Many Children Do You Have? 1 Information not available 10/29/2023 What Is Your Relationship Status? Information not available 10/29/2023 Do You Use Your Seat Belt Or Car Seat Routinely? Yes Information not available 10/29/2023 Are You Sexually Active? Yes Information not available 10/29/2023 Do You Have Smoke And Carbon Monoxide Detectors In Your Home? Yes Information not available 10/29/2023 Are You Passively Exposed To Smoke? No Information no t available 10/29/2023 Has Tobacco Cessation Counseling Been Provided? Yes Information not available 10/29/2023 On What Date Was Tobacco Cessation Counseling Provided? 11/25/2024 Information not available 11/25/2024 Sex: Female Functional Status Question Answer Note LastModified by Organizat ion Details LastModified Time Do you use any illicit or recreational drugs? No Information not available 10/29/2023 Do you or have you ever used any other forms of tobacco or nicotine? No Information not available 10/29/2023 What is your level of alcohol consumption? None Information not available 10/29/2023 Do you or have you ever used smokeless tobacco? Never used smokeless tobacco Information not available 10/29/2023 Are you currently employed? Yes Information not available 10/29/2023 Are you able to care for yourself independently? 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 Never used electronic cigarettes Information not available 10/29/2023 What is your exercise level? Occasional Information not available 10/29/2023 Mental Status Question Answer Note LastModified by Organization D etails LastModified Time Do you feel stressed (tense, restless, nervous, or anxious, or unable to sleep at night)? [id number] Information not available 10/29/2023 Family History Relationship Description Onset Age of this Age Resolved Age Notes LastModified by Organization Details LastModified Time Father Hypertensive disorder [email or web address] Not available 10/28 10:44:23 Father Hypercholest erolemia [email or web address] Not available 10/28 10:44:33 Father Malignant neoplasm of skin head [email or web address] Not available 03/11 11:03:12 Father Parkinson's disease 87 [email or web address] Not available 11/25 12:13:24 Mother Hypertensive disorder [email or web address] Not available 10/28 10:44:23 Mother Hypercholest erolemia [email or web address] Not available 10/28 10:44:33 Sister Malignant neoplasm of skin face [email or web address] Not available 03/11 11:03:16 Medical History Condition Response Coronary Artery Disease N Other N Atrial Fibrillation N High Blood Pressure N Thyroid Problems Y Kidney or Bladder Problems N GI Problems N Depression N COPD N Blood Clots N Eating Disorder N Skin Problems N Anemia N Heart Attack ([place]) N Anxiety Disorder N Diabetes N Muscle, Joint, or Bone Problems Y Arthritis N Seizures/Epilepsy N Acid Reflux (GERD) N Cancer N Stroke N Asthma N Allergies N ADHD N Substance Abuse N High Cholesterol Y Hepatitis N Liver Disease N Schizophrenia N Headaches N Heart Failure N Osteoporosis N Gynecological History Statement/Question Response Date of Last Mammogram 12/09/2023 Date of LMP 11/02/2024 Frequency of Cycle (Q days) 28 Menses Monthly Y Date of Last Pap Smear 03/18/2023 Duration of Flow (days) 4 Age at Menarche 13 Current Control Method Withdrawal Age at First Child 33 LMP Approximate Obstetrics History GPAL:G 3 P 1 0 2 1 Type Value Full Term 1 Spontaneous 1 Living 1 Ectopics 1 Total 3 Immunizations Vaccine Type Date Status Note Provider Nam e and Address Organization Details Recorded Time Influenza, split virus, quadrivalent, PF 04/25/2019 completed Not Available [facility] 5 11:02:31 Influenza, split virus, quadrivalent, PF 04/30/2020 completed Not Available [facility] 5 11:02:31 COVID-19, mRNA, LNP-S, PF, 30 mcg/0.3 mL dose 06/30/2020 completed Not Available [facility] 5 11:02:31 COVID-19, mRNA, LNP-S, PF, 30 mcg/0.3 mL dose 07/21/2020 completed Not Available [facility] 5 11:02:31 COVID-19, mRNA, LNP-S, PF, 30 mcg/0.3 mL dose, barrie-sucrose 02/20/2022 completed Not Available [facility] 025 11:02:31 Influenza, MDCK, quadrivalent, PF 05/02/2023 completed Not Available [facility] 5 11:02:31 Past Encounters Encounter ID Performer Location Encounter Start Date Encounter Closed Date Diagnosis/Indication Diagnosis SNOMED-CT Code Diagnosis ICD10 Code Diagnosis IMO Codes Diagnosis Note [id number] Viviana Fenton MD [facility] ([facility]) [address] [place] [phone] 10/29/2023 10:07:16 10/30/2023 16:14:11 Gynecologic examination 97026922 Z01.419 Normal gynecologi c exam today.Cerv ical cancer screening: UTD per pt, no hx abnormal. Records requestedB reast cancer screening: Reviewed recommenda tions for initiation at age 40 with annual screening. Discussed SBEColonos copy: cologuard 12/2022 negative per PCP notes from screening: pt declines. Safe sex practices discussed. Contracept ion: None, declinesDi et/exercis e: Counseled regarding importance of physical activity, healthy diet and appropriat e calcium intake.RTC in 1yr Screening for malignant neoplasm of cervix 506308682 Z12.4 -UTD on pap screenings per pt. Denies hx abnormal-L ast chief investment officer exam 01/2023-Fabio l request records. Pap deferred until received. Screening for malignant neoplasm of breast 753520532 Z12.39 -Due for annual mammogram per pt.-Denies breast complaints . No FMHx breast cancer-CBE unremarkab le-Mammogr am order sent. [id number] Viviana Fenton MD [facility] ([facility]) [address] [place] [phone] 03/11/2024 10:30:01 03/12/2024 17:13:18 Perimenopausal state [id number] 64574 Z78.0 -Discussed possible perimenopa usal changes-Wi ll order labs, discussed can be normal early in - Pt requests ferritin level. [id number] Viviana Fenton MD [facility] ([facility]) [address] [place] [address] 11/25/2024 11:01:16 11/30/2024 12:51:37 Gynecologic examination 87615237 Z01.225 [id number] Normal gynecologi c exam today.Cerv ical cancer screening: Last pap 03/18/23--N ILM, -hrHPV. Due 2027Breast cancer screening: Reviewed recommenda tions for initiation at age 40 with annual screening. Discussed SBEColonos copy: cologuard 12/2022 negative per PCP notes from screening: pt declines. Safe sex practices discussed. Contracept ion: None, declinesDi et/exercis e: Counseled regarding importance of physical activity, healthy diet and appropriat e calcium intake.RTC in 1yr Examination of breast 46 912279 Z12.39 [id number] -Last mammogram 12/08/2022- -BIRADS 2-Denies breast complaints . No FMHx breast cancer-CBE unremarkab le-Mammogr am order sent Health Concerns Section Related Observation LastModified by Organization Detai ls LastModified Time None Recorded Concern Status LastModified by Organization Details LastModified Time None Recorded Advance Directives Directive None Recorded Payers Insurance Date Sequence Insurance Name Policy Number Policy Henning Covered Member ID Henning Member ID Guarantor Name 11/25/2024 2 [place] [employer] Brit Osorio [id number] Brit Osorio 03/11/2024 1 [facility] [place] Brit Osorio [id number] Brit Osorio 11/25/2024 1 [facility] (MEDICAID HMO) [id number] Brit Osorio [id number] Brit Osorio Notes Date Note Type Note Provider Name and Address Organization Details Recorded Time 10/29/19 24 text/htm l Annual GYNReported by PatientGenitourinary symptomsFor menstrual cycle, patient reportsnormal menses. For urinary symptoms, patient reportsno hematuriaandno incontinence. For vulva, patient reportsno genital lesion. For vagina, patient reportsnormal vaginal discharge.Breast symptomsFor breast, patient reportsno breast pain,no breast lump, andno nipple discharge(no fmhx breast cancer).ContraceptionFor current contraception, patient reportswithdrawal method.Endocrine symptomsFor sexual complaints, patient reportsno sexual complaints,no pain during intercourse, andnormal libido. For menopausal symptoms, patient reportsno menopausal symptomsandnormal vaginal lubrication.Preventative measuresFor preventive measures, patient reportsencourage self breast examination,encourage regular exercise,encourage no tobacco use, andencourage regular mammograms starting age 40. 43 yo presents to establish care. Last chief investment officer visit 01/2023. Previous care at [place]. Reports compliance with regular screenings and annual visits. States she is UTD on paps, denies hx abnormal. Due for mammogram. Denies any breast or vaginal complaints. Menses regular, monthly. Monogamous relationship with x 17 years, declines STI testing. DANISH CRAIN Attn: Accounting,[address] [place], [address], [facility] 10/29/2023 11:57:46 03/11/20 24 text/htm l ROS as noted in the HPI 43 yo presents for irregular periods. States January menses was 8 days late. February menses came as scheduled, LMP 02/27/24. Reports increased difficultly sleeping and mood changes recently as well. PMHx hypothyroidism, takes levothyroxine. States recently had labs in November for her thyroid and all was normal. Requests ferritin to be checked, reports hx iron deficiency although denies recent history. Denies menorrhagia. DANISH CRAIN Attn: Accounting,[address] [facility], [place], [address], [facility] 03/11/2024 14:14:01 11/26/19 25 text/htm l Annual GYNReported by PatientGenitourinary symptomsFor menstrual cycle, patient reportsperimenopausal. For urinary symptoms, patient reportsno hematuriaandno incontinence. For vulva, patient reportsno genital lesion. For vagina, patient reportsnormal vaginal discharge.Breast symptomsFor breast, patient reportsno breast pain,no breast lump, andno nipple discharge(no fmhx breast cancer).ContraceptionFor current contraception, patient reportsmonogamous relationshipandwithdrawal method.Endocrine symptomsFor sexual complaints, patient reportsno sexual complaints,no pain during intercourse, andnormal libido. For menopausal symptoms, patient reportsno menopausal symptomsandnormal vaginal lubrication.Preventative measuresFor preventive measures, patient reportsencourage self breast examination,encourage regular exercise,encourage no tobacco use, andencourage regular mammograms starting age 40. 44 yo presents for annual wwe. Last pap 03/18/23. No hx abnormal. Denies any breast or vaginal complaints. Monthly menses with somewhat unpredictable cycle lengths. DANISH CRAIN Attn: Accounting,[address] [facility], [place], [address], [facility] 11/25/2024 14:03:16 OBGyn Episode Ob Episode Information Episode Created Date Number of Fetuses Patient Bloodtype Patient rh Status Prepregnancy Weight lbs Domestic Partner Domestic Partner Phone Father Name Call Center Manager Status 10/29/19 24 1 CLOSED Fetus Data First Name Last Name Admitted to NICU Weight (g) Sex Living Outcome Pediatric Complications Fetus ID Race Codes Race Delivery Type 3345.24 1 M Full Term [id number] Gil Calculation Initial Gil Date Initial Exam Date Initial Exam Provider Initial Ultrasound Date Last Menstrual Period Date Ultra Sound Weeks Gestation 0 Eighteen To Twenty Week Gil Update Ultra Sound Date Fundal Height At Umbil Quickening Date Ultra Sound Latest Weeks Gestation Final Gil Confirmed By Final Gil Confirmed Date Final Gil Date Ultra Sound Latest Days Gestation 0 0 Menstrual History Last Menstrual Date Menses Monthly On Bcp Conception Prior Menses Frequency Hcg Plus Date Menarche Onset Age Delivery Information Delivery Date Delivery Type Labor Anesthesia Weeks Gestation Incision Type Labor Labor Length Hrs Delivered By Post Complications Tubal Sterilization Discharge Date Comments 7 Regional-Sp inal 38.4 false Discharge Information Feeding Method Contraceptive Method Maternal HG B and HCT Levels
--- OUTSIDE RECORDS SUMMARY | 2025-04-08 19:29 | XMS_ITS | Clinical Summary ---
Author Organization [facility] Address [address] [place] [address] Care Team Providers Care Overhead Garage Door Hanger Name Role Phone Enrique Loza MD Primary Care Provider Source Comments [facility],non-owned Affiliates and Associated Physician Practices is amultiple site organization consisting of ambulatory clinics and hospital sitesin [place], [place], [place] and [place]. This disclosure is being madepursuant to the Care Everywhere program and may not contain all information available regarding this patient. Last updated 18.[facility] Immunizations Immunization Administration Dates Next Due INFLUENZA VACCINE, QUADR. 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
--- OUTSIDE RECORDS SUMMARY | 2025-04-08 19:30 | XMS_ITS | Encounter Summary ---
Author Organization [facility] Address [address] [place] [address] Care Team Providers Care Mds Manager Name Role Phone Belgica Ji Primary Care Provider [phone] Encounter Details Date Type Department Care Team (Late st Contact Info) Description 04/08/2025 Stealzhart Message Enc [facility] Family & Internal Medicine [facility] [address] [place] [phone] Belgica Ji APNP [address] [place], [place] [phone] Painful cyst? Social History Tobacco Use Types Packs/Day Years Used Date Smoking Tobacco: Never Smokeless Tobacco: Never Alcohol Use Standard Drinks/Week Comments Never 0 (1 standard drink = 0.6 oz pur e alcohol) PHQ-2 Answer Date Recorded Patient Health Questionnaire-2 Score 0 10/16/2024 Comments No Sex and Gender Information Value Date Recorded Sex Assigned at Not on file Legal Sex Female 7:38 AM CULINARY INTERN Gender Identity Not on file Sexual Orientation [...] Description 04/09/2025 3:20 PM CDT Office Visit [facility] Family & Internal Medicine - [place] [address] [place] [address] Cindy Espinoza, DO 3 [facility] [address] documented as of this encounter Visit Diagnoses Not on filedocumented in this encounter Care Teams Mds Manager Relationship Specialty Start Date End Date Belgica Ji APNP [address] [place] [address] PCP - General NURSE PRACTITIONER 07/03/23 documented as of this encounter
[2025-04-08] MEDS: SULFAMETHOXAZOLE/TRIMETHOPRIM 800/160 MG DS TABLET 1 TAB PO (20:38)
== END 2025-04-08 21:12 | disposition home or self-care (01) ==
PROVIDERS: Emergency Provider Student in an Organized Health Care Education/Training Program; PCP Registered Nurse
DX: L02.212 Cutaneous abscess of back [any part, except buttock and flank] (principal); E03.9 Hypothyroidism, unspecified
CPT/HCPCS: 10060; 99283; A9270